=== PATIENT | female | born 2000 | race Caucasian/White ===

== ENCOUNTER 2022-03-17 14:58 | Emergency (ER) | payer BC, SELFPAY ==
--- NOTE | ~2022-03-17 | CT_ITS ---
EXAMINATION: NONCONTRAST HEAD CT NONCONTRAST MAXILLOFACIAL CT NONCONTRAST CERVICAL SPINE CT INDICATION INFORMATION: Fall with head strike COMPARISON: None TECHNIQUE: Separate noncontrast CT examinations of the head, maxillofacial bones, and cervical spine were performed. Coronal and sagittal images were created for each examination at the technologist workstation. This CT examination was performed using dose optimization techniques as appropriate, variously including the following: *Automated exposure control *Adjustment of mA and/or kV according to patient size (this includes techniques or standardized protocols for targeted exams where dose is matched to indication/reason for exam; i.e. extremities or head) *Use of iterative reconstruction technique DLP: 1777 mGy-cm FINDINGS: HEAD: No intra or extra-axial fluid collection, hemorrhage, or mass. No midline shift or herniation. Basal cisterns are patent. [place]-white matter differentiation is maintained. No territorial encephalomalacia.. No hydrocephalus. No significant volume loss. There is no abnormal attenuation within the brain parenchyma. Small left frontal scalp hematoma/swelling. No calvarial fracture. The mastoid air cells are well aerated. MAXILLOFACIAL: No acute facial bone fractures are seen. Small subcentimeter mucous retention cyst in the right maxillary antrum. Minimal mucosal thickening along the floor the left sphenoid sinus. Paranasal sinuses otherwise normally aerated. Left middle turbinate stacia bullosa noted incidentally. The mandibular heads are normally positioned in the glenoid fossa. The orbits demonstrate a normal appearance bilaterally. The globes are intact. No evidence of retrobulbar hemorrhage. CERVICAL SPINE: Alignment:Normal. No subluxation. Vertebra:No acute fracture. No prevertebral soft tissue swelling. Degenerative disc disease:No significant. Preserved intervertebral disc heights. Other findings:No cervical lymphadenopathy. Visualized thyroid gland is unremarkable. Visualized base of the brain is grossly unremarkable. Visualized lung apices are clear. CT/CT cervical spine wo IV con IMPRESSION: 1. No intracranial hemorrhage or calvarial fracture. 2. Small left frontal scalp hematoma/swelling. 3. No acute facial bone fracture. 4. No traumatic subluxation or acute cervical spine fracture.
[2022-03-17 16:31] VITALS: BP 145/69; PULSE 77; RESP 16; TEMP 36.6; O2SAT 97; BMI 36.1
--- NOTE | 2022-03-17 19:57 | ED_ITS ---
HPI - General Adult General Chief complaint: Head Injury Stated complaint: Fall/Head inj Time Seen by Provider: 03/17/22 19:56 Source: patient Mode of arrival: ambulatory Limitations: no limitations History of Present Illness HPI narrative: Patient is a 21 year old assigned female at with no reported medical history presenting to the emergency department today with a headache. Patient states that she collided with another player while they were playing rugby and she has bruising to her head. Patient states that she was seen by the [place] [facility] who recommended she come to the hospital. Patient denies any loss of consciousness with the incident. Patient denies any dizziness, lightheadedness, abdominal pain, nausea, vomiting, fever, chills, blurry vision, double vision, loss of vision, chest pain, difficulty breathing, shortness of breath, back pain, night sweats, pain with urination, increased urinary frequency, increased urinary urgency, blood in her urine or stool, syncope or a near syncopal episode, bowel incontinence, bladder incontinence, bowel retention, bladder retention, or any other complaints at this time. Onset (ago): hour(s) Location: head Radiation: non-radiation Severity: mild Severity scale (1-10): 3 Quality: dull Pain Consistency: constant Relieving factors: none Exacerbating factors: none Associated symptoms: denies other symptoms Treatments prior to arrival: none Related Data Allergies Allergy/AdvReac Type Severity Reaction Status Date / Time No Known Allergies Allergy Verified 03/17/22 16:31 Review of Systems Constitutional: Constitutional: Reports no additional constitutional complaints, Denies chills, Denies fever(s), Reports headache(s) and Denies night sweats Eyes: Eyes: Reports no additional eye complaints, Denies blurry vision, Denies change in vision, Denies diplopia, Denies eye discharge, Denies loss of vision and Denies eye pain ENT: Denies dizziness and Reports headache(s) Cardiovascular: Cardiovascular: Reports no additional cardiovascular complaints, Denies chest pain, Denies lightheadedness, Denies Loss of Consciousness and Denies dyspnea Respiratory: Respiratory: Reports no additional respiratory complaints and Denies dyspnea Gastrointestinal: Gastrointestinal: Reports no additional gastrointestinal complaints, Denies abdominal pain, Denies melena, Denies hematochezia, Denies change in bowel habits and Denies change in stool character Genitourinary: Genitourinary: Denies hematuria, Denies urinary frequency, Denies dysuria, Denies urinary incontinence, Denies urinary hesitancy and Denies urinary urgency Musculoskeletal: Musculoskeletal: Reports no additional musculoskeletal complaints, Denies numbness and Denies tingling Neurologic: Denies dizziness, Reports headache(s), Denies loss of vision, Denies numbness and Denies tingling Psychiatric: Psychiatric: Reports no additional psychiatric complaints Endocrine: Endocrine: Reports no additional endocrine complaints Hematologic/Lymphatic: Hematologic/Lymphatic: Reports no additional hematologic/lymphatic complaints Allergic/Immunologic: Allergic/Immunologic: Reports no additional allergic/immunologic complaints [facility] Past Medical History Attestation statement: The following information was validated with the patient. Source: old records reviewed Social History Social History Advance Directives: No Advance Directives Information Provided: No Physical Exam ED Vital Signs: Vital Signs - 24 hr 03/17/22 16:31 Temperature 97.8 F Pulse Rate 77 Respiratory Rate 16 Blood Pressure 145/69 H Pulse Oximetry 97 Oxygen Delivery Method Room Air BMI result Body Mass Index 36.1 Const General: cooperative, no acute distress, alert and awake Nutritional Appearance: well nourished Orientation/consciousness: patient oriented x3 Limitations: no limitations HENMT Other: minimal bruising under bilateral eyes and to the left forehead Ears: hearing grossly normal bilaterally and external ears normal General nose exam: Normal external nose present, no nasal discharge noted and no epistaxis Face and sinus: Yes normal facial exam, No abrasion and No laceration Mouth: Normal oral and palatal mucosa present, no drooling and no muffled voice Eyes General: appearance normal, both eyes and all related structures Periorbital: periorbital findings normal Eyelids: Yes eyelids normal Conjunctivae: conjunctivae normal Pupils: Equal, round and reactive pupils present EOM: EOMs intact bilaterally Neck Neck: Yes normal visual inspection, Yes full ROM and Yes no lymphadenopathy Chest Chest palpation & inspection: normal inspection of the chest Resp Effort & Inspection: normal respiratory effort and able to speak in complete sentences Auscultation: clear to auscultation bilaterally Cardio Rate: regular rate Rhythm: regular rhythm GI Inspection: Yes normal to inspection Neuro General: patient oriented x3 and moves all extremities Cranial nerves: Yes Equal, round and reactive pupils present Cognition (Neuro): normal cognition Motor exam (neuro): 5/5 motor strength present throughout Sensory Exam: Normal double simultaneous stimulation for sensation Coordination: [id number] test normal Extrem General: Yes normal to inspection, Yes full ROM and Yes capillary refill normal Psych Appearance: grossly normal Mental Status: mental status grossly normal Affect: normal affect Attitude: cooperative Thought process: Normal thought process present Thought content: Normal thought content present Insight: Good insight present (Psych) Medical Decision Making MDM Narrative Medical decision making narrative: Patient is a 21 year old assigned female at with no reported medical history presenting to the emergency department today with a headache. Patient's physical exam showed minimal bruising under her bilateral eyes and to her left forehead. Patient's head, C-spine, and facial CTs showed no acute process. I explained my physical exam findings as well as all test results to the patient. I answered all questions asked by the patient. I stressed the importance of the patient taking her medication as prescribed. I stressed the importance of the patient following up with her primary care provider. I stressed the importance of the patient returning to the emergency department immediately if her symptoms were to worsen or if she were to develop any dizziness, shortness of breath, difficulty breathing, chest pain, blurry vision, loss of vision, nausea, vomiting, abdominal pain, fever, chills, back pain, or any other complaints. Patient verbalized agreement and understanding with this treatment plan and disc harge. Medical Records Medical records reviewed: Yes I reviewed the patient's medical records. Imaging Data CT neck, c-spine, head: Attestation: I personally reviewed and interpreted this imaging study as follows: My impression: No acute process. Radiologist's impression: EXAMINATION: NONCONTRAST HEAD CT NONCONTRAST MAXILLOFACIAL CT NONCONTRAST CERVICAL SPINE CT INDICATION INFORMATION: Fall with head strike COMPARISON: None TECHNIQUE: Separate noncontrast CT examinations of the head, maxillofacial bones, and cervical spine were performed. Coronal and sagittal images were created for each examination at the technologist workstation. This CT examination was performed using dose optimization techniques as appropriate, variously including the following: *Automated exposure control *Adjustment of mA and/or kV according to patient size (this includes techniques or standardized protocols for targeted exams where dose is matched to indication/reason for exam; i.e. extremities or head) *Use of iterative reconstruction technique DLP: 1777 mGy-cm FINDINGS: HEAD: No intra or extra-axial fluid collection, hemorrhage, or mass. No midline shift or herniation. Basal cisterns are patent. [place]-white matter differentiation is maintained. No territorial encephalomalacia.. No hydrocephalus. No significant volume loss. There is no abnormal attenuation within the brain parenchyma. Small left frontal scalp hematoma/swelling. No calvarial fracture. The mastoid air cells are well aerated. MAXILLOFACIAL: No acute facial bone fractures are seen. Small subcentimeter mucous retention cyst in the right maxillary antrum. Minimal mucosal thickening along the floor the left sphenoid sinus. Paranasal sinuses otherwise normally aerated. Left middle turbinate stacia bullosa noted incidentally. The mandibular heads are normally positioned in the glenoid fossa. The orbits demonstrate a normal appearance bilaterally. The globes are intact. No evidence of retrobulbar hemorrhage. CERVICAL SPINE: Alignment:Normal. No subluxation. Vertebra:No acute fracture. No prevertebral soft tissue swelling. Degenerative disc disease:No significant. Preserved intervertebral disc heights. Other findings:No cervical lymphadenopathy. Visualized thyroid gland is unremarkable. Visualized base of the brain is grossly unremarkable. Visualized lung apices are clear. CT/CT head/brain wo IV con IMPRESSION: 1.? No intracranial hemorrhage or calvarial fracture. 2.? Small left frontal scalp hematoma/swelling. 3.? No acute facial bone fracture. 4.? No traumatic subluxation or acute cervical spine fracture. Dictated By: Pablo Rodas Signed By: Electronically signed by Pablo?Clark 03/17/22 7905 Discharge Plan Discharge Clinical Impression: Closed head injury Patient Disposition: Home, Self-Care Instructions: Head Injury (ED) Additional Instructions: Follow up with your primary care provider. Return to the emergency department immediately if your symptoms worsen or if you develop any dizziness, shortness of breath, difficulty breathing, chest pain, blurry vision, loss of vision, nausea, vomiting, abdominal pain, fever, chills, back pain, or any other complaints. Referrals: [facility] [Provider Group] (Call to establish and follow up with a primary care provider. If you already have a primary care provider, please follow up with them. ) [facility] [Provider Group] (Call to establish and follow up with a primary care provider. If you already have a primary care provider, please follow up with them. ) [facility] [Provider Group] (Call to establish and follow up with a primary care provider. If you already have a primary care provider, please follow up with them. ) Stand Alone Forms: Work/School Release Interventions: ED Discharge Assessment Last Done: 03/17/22 20:18 Discharge Date/Time: 03/17/22 20:18 Print Language: Slovak
== END 2022-03-17 20:18 | disposition home or self-care (01) ==
PROVIDERS: Emergency Provider Internal Medicine
DX: S00.12XA Contusion of left eyelid and periocular area, initial encounter (principal); S00.11XA Contusion of right eyelid and periocular area, initial encounter; R51.9 Headache, unspecified; M54.2 Cervicalgia; Y29.XXXA Contact with blunt object, undetermined intent, initial encounter; Y93.9 Activity, unspecified; Y92.318 Other athletic court as the place of occurrence of the external cause; Y99.8 Other external cause status
CPT/HCPCS: 70450; 70486; 72125; 99282; 99283; 99284